=== PATIENT | female | born 1980 | race Caucasian/White ===

== ENCOUNTER 2017-12-20 14:58 | Emergency (ER) | payer OTHER, MEDICAID ==
[~2017-12-20] VITALS: Ht 167.6 cm; Wt 98.0 kg
[2017-12-20] MEDS ORDERED: EMTR1TAB9 PO (15:46)
[2017-12-20] MEDS ORDERED: PREN1TAB60 PO (15:46)
[2017-12-20] MEDS ORDERED: AMLO5TAB7 PO (15:46)
[2017-12-20] MEDS ORDERED: CRAN300T PO (15:47)
[2017-12-20 15:51] LABS: BASOPHILS # (AUTO) 0.06 x10^3/uL (0-0.1); BASOPHILS % (AUTO) 1 % (0-1); EOSINOPHILS # (AUTO) 0.06 x10^3/uL (0-0.4); EOSINOPHILS % (AUTO) 1 % (1-7); LYMPHOCYTES # (AUTO) 1.99 x10^3/uL (1-3.4); LYMPHOCYTES % (AUTO) 24 % (22-44); MD NO; MEAN CORPUSCULAR HEMOGLOBIN 32.3 pg (27.0-34.8); MEAN CORPUSCULAR HGB CONC 33.5 g/dL (32.4-35.8); MEAN CORPUSCULAR VOLUME 96.4 fL (80-100); MEAN PLATELET VOLUME 8.5 fL (7.4-10.4); MONOCYTES # (AUTO) 0.58 x10^3/uL (0.2-0.8); MONOCYTES % (AUTO) 7 % (2-9); NEUTROPHILS % (AUTO) 68 % (42-75); PLATELET COUNT 265 x10^3/uL (130-400); RED BLOOD COUNT 4.83 x10^6/uL (3.82-5.3); RED CELL DISTRIBUTION WIDTH 13.7 % (9.6-15.2)
[2017-12-20 16:00] LABS: ALBUMIN 4.1 g/dL (3.4-5.0); ANION GAP 7 mmol/L (5-15); CALCIUM 9.2 mg/dL (8.5-10.1); CHLORIDE 106 mmol/L (98-107)
[2017-12-20 16:01] LABS: CREATININE 0.83 mg/dL (0.55-1.02)
[2017-12-20 16:03] LABS: HCT (SEDRATE) 46.6 % (34.6-47.8)
[2017-12-20] MEDS ORDERED: ONDANSETRON ODT 4 MG PO ONE (17:00)
[2017-12-20] MEDS ORDERED: HYDROcodone/APAP 5/325 TABLET PO ONE (17:00)
[2017-12-20] MEDS ORDERED: HYDROcodone/APAP 5/325 TABLET ONE (17:07)
[2017-12-20] MEDS ORDERED: ONDANSETRON ODT 4 MG ONE (17:07)
[2017-12-20 17:17] VITALS: BP 154/95
== END 2017-12-20 17:59 | disposition home or self-care (01) ==
LOC: ED 17:15
DX: B02.9 Zoster without complications (principal); Z87.891 Personal history of nicotine dependence
CPT/HCPCS: 36415; 70450; 80048; 82040; 85025; 85651; 99285; Q0162